=== PATIENT | female | born 2000 | race Caucasian/White ===

== ENCOUNTER 2018-04-29 21:35 | Emergency (ER) | payer OTHER ==
[~2018-04-29] VITALS: Ht 175.3 cm; Wt 81.7 kg
[2018-04-29] MEDS ORDERED: MEDROLDOSEPACK PO (22:22)
[2018-04-29] MEDS ORDERED: BACTRIM DS TAB1 EACH PO (22:23)
[2018-04-29 22:38] VITALS: BP 129/84
== END 2018-04-29 22:41 | disposition home or self-care (01) ==
LOC: M.ERS 21:35
DX: L03.116 Cellulitis of left lower limb (principal)